=== PATIENT | male | born 1985 | race Caucasian/White ===

== ENCOUNTER 2024-06-08 15:55 | Emergency (ER) | payer SELFPAY ==
--- NOTE | 2024-06-08 16:48 | EDPHYS ---
Physician Documentation [facility] Name: Jeromy Land Age: 39 yrs Sex: Male : 1985 Arrival Date: 06/08/2024 Time: 15:55 Bed 20 Private MD: ED Physician Trever Parsons HPI: 06/08 20:07 This 39 yrs old Male presents to ER via EMS with complaints of Anxiety. rt 20:07 Patient states that he was kicked out of a hotel he was living at recently, he rt developed anxiety related to that today. Denies physical symptoms associated with. Does state that he had used methamphetamines over the past few days. Denies any acute complaints at this time, symptoms are mild in severity, no other aggravating relieving factors.. Historical: - Allergies: 16:05 No Known Allergies; kc6 - Home Meds: 16:05 None [Active]; kc6 - PMHx: 16:05 Anxiety; kc6 - PSHx: 16:05 None; kc6 - Immunization history:: Client reports having NOT received the Covid vaccine. Flu vaccine is up to date. - Infectious Disease History:: Denies. - Social history:: Smoking status: Patient reports the use of cigarette tobacco products, smokes one-half pack cigarettes per day, Patient/guardian denies using alcohol, street drugs. - Family history:: not pertinent. ROS: 20:07 Constitutional: Negative for fever, chills, and weight loss, Cardiovascular: Negative rt for chest pain, palpitations, and edema, Respiratory: Negative for shortness of breath, cough, wheezing, and pleuritic chest pain, Abdomen/GI: Negative for abdominal pain, nausea, vomiting, diarrhea, and constipation, MS/Extremity: Negative for injury and deformity, Skin: Negative for injury, rash, and discoloration, Neuro: Negative for headache, weakness, numbness, tingling, and seizure, 20:07 Psych: Positive for anxiety, Negative for suicidal ideation, Exam: 20:10 Constitutional: This is a well developed, well nourished patient who is awake, alert, rt and in no acute distress. Chest/axilla: Normal chest wall appearance and motion. Nontender with no deformity. No lesions are appreciated. Cardiovascular: Regular rate and rhythm with a normal S1 and S2. No gallops, murmurs, or rubs. Normal PMI, no JVD. No pulse deficits. Respiratory: Lungs have equal breath sounds bilaterally, clear to auscultation and percussion. No rales, rhonchi or wheezes noted. No increased work of breathing, no retractions or nasal flaring. Abdomen/GI: Soft, non-tender, with normal bowel sounds. No distension or tympany. No guarding or rebound. No evidence of tenderness throughout. Skin: Warm, dry with normal turgor. Normal color with no rashes, no lesions, and no evidence of cellulitis. MS/ Extremity: Pulses equal, no cyanosis. Neurovascular intact. Full, normal range of motion. Vital Signs: 16:04 BP 145 / 100; Pulse 77; Resp 18 S; Temp 98(O); Pulse Ox 98% on R/A; Weight 99.79 kg kc6 (R); Height 6 ft. 2 in. (R); Pain 0/10; 16:51 BP 120 / 97; kc6 16:04 Body Mass Index 28.25 (99.79 kg, 187.96 cm) 6 16:04 Pain Scale: Adult kc6 MDM: 16:20 Medical Screening Exam initiated rt 20:10 Differential Diagnosis Anxiety disorder, methamphetamine abuse. Data reviewed: vital rt signs, nurses notes. Test considered but Not performed: Other Details Patient with anxiety only, no physical symptoms, stable vital signs, believe that any diagnostic studies are indicated.. Care significantly affected by the following chronic conditions: Anxiety disorder. Counseling: I had a detailed discussion with the patient and/or guardian regarding the historical points, exam findings, and any diagnostic results supporting the discharge/admit diagnosis, the need for outpatient follow up, to return to the emergency department if symptoms worsen or persist or if there are any questions or concerns that arise at home. Administered Medications: 16:50 Drug: hydrOXYzine PO 25 mg PO once Route: PO; kc6 17:20 Follow up: Response: No adverse reaction kc6 Disposition Summary: 06/08/24 16:48 Discharge Ordered Notes: Location: Home rt Problem: new rt Symptoms: have improved rt Condition: Stable rt Diagnosis - Anxiety disorder, unspecified rt - Methamphetamine abuse rt Followup: rt - With: Private Physician - When: 2 - 3 days - Reason: Discharge Instructions: - Discharge Summary Sheet rt - Methamphetamines Use Disorder rt - Generalized Anxiety Disorder, Adult rt Forms: - Medication Reconciliation Form rt - Antibiotic Education rt - Prescription Opioid Use rt - Patient Portal Instructions rt - Leadership Thank You Letter rt Prescriptions: - Hydroxyzine HCl 25 mg Oral tablet - take 1 tablet ORAL route every 6 hours As needed; 15 tablet; Refills: 0, rt Product Selection Permitted Signatures: Heidy Flores RN RN kc6 Trever Parsons MD MD rt Corrections: (The following items were deleted from the chart) 16:07 16:05 Social history: Smoking status: Patient reports the use of cigarette tobacco kc6 products, smokes one-half pack cigarettes per day, kc6
--- NOTE | 2024-06-08 16:48 | ER ---
Nurse's Notes [facility] Name: Jeromy Land Age: 39 yrs Sex: Male : 1985 Arrival Date: 06/08/2024 Time: 15:55 Bed 20 Private MD: Diagnosis: Anxiety disorder, unspecified;Methamphetamine abuse Presentation: 06/08 16:04 Chief complaint: EMS states: they were toned out for anxiety, first episode. pt reports kc6 he was kicked out of the hotel he was staying at, lost his tooth yesterday, hasn't been able to go to [employer] or find a place to live. pt denies SI or HI. Coronavirus screen: At this time, the client does not indicate any symptoms associated with coronavirus-19. Ebola Screen: No symptoms or risks identified at this time. Initial Sepsis Screen: Does the patient meet any 2 criteria? No. Patient's initial sepsis screen is negative. Does the patient have a suspected source of infection? No. Patient's initial sepsis screen is negative. Risk Assessment: Do you want to hurt yourself or someone else? Patient reports no desire to harm self or others. Onset of symptoms was June 08, 2024. 16:04 Method Of Arrival: EMS: [facility] kc6 16:04 Acuity: LYDIA 4 kc6 Historical: - Allergies: 16:05 No Known Allergies; kc6 - Home Meds: 16:05 None [Active]; kc6 - PMHx: 16:05 Anxiety; kc6 - PSHx: 16:05 None; kc6 - Immunization history:: Client reports having NOT received the Covid vaccine. Flu vaccine is up to date. - Infectious Disease History:: Denies. - Social history:: Smoking status: Patient reports the use of cigarette tobacco products, smokes one-half pack cigarettes per day, Patient/guardian denies using alcohol, street drugs. - Family history:: not pertinent. Screenin:06 [facility] ED Fall Risk Assessment (Adult) History of falling in the last 3 months, kc6 including since admission No falls in past 3 months (0 pts) Confusion or Disorientation No (0 pts) Intoxicated or Sedated No (0 pts) Impaired Gait No (0 pts) Mobility Assist Device Used No (0 pt) Altered Elimination No (0 pt) Score/Fall Risk Level 0 - 2 = Low Risk Oriented to surroundings, Maintained a safe environment. Abuse screen: Denies threats or abuse. Denies injuries from another. Nutritional screening: No deficits noted. Tuberculosis screening: No symptoms or risk factors identified. Assessment: 16:06 General: Appears in no apparent distress. comfortable, well groomed, well developed, kc6 Behavior is cooperative, anxious, quiet. Pain: Denies pain. Neuro: Level of Consciousness is awake, alert, obeys commands, Oriented to person, place, time, situation, Appropriate for age. Cardiovascular: Capillary refill < 3 seconds. Respiratory: Airway is patent Trachea midline Respiratory effort is even, unlabored, Respiratory pattern is regular, symmetrical. GI: No signs and/or symptoms were reported involving the gastrointestinal system. : No signs and/or symptoms were reported regarding the genitourinary system. EENT: No signs and/or symptoms were reported regarding the EENT system. Derm: No signs and/or symptoms reported regarding the dermatologic system. Skin is intact, is healthy with good turgor, Skin is pink, warm \T\ dry. Musculoskeletal: No signs and/or symptoms reported regarding the musculoskeletal system. Circulation, motion, and sensation intact. Range of motion: intact in all extremities. 16:08 Reassessment: attempted to call patients jesenia Perea [phone] per his request. kc6 no answer at this time, left a VM. 17:04 Reassessment: pt on the phone with his brother Jemal at the nurses station [phone].[facility] Vital Signs: 16:04 BP 145 / 100; Pulse 77; Resp 18 S; Temp 98(O); Pulse Ox 98% on R/A; Weight 99.79 kg kc6 (R); Height 6 ft. 2 in. (R); Pain 0/10; 16:51 BP 120 / 97; kc6 16:04 Body Mass Index 28.25 (99.79 kg, 187.96 cm) 6 16:04 Pain Scale: Adult kc ED Course: 15:57 Patient arrived in ED. kc6 16:00 Trever Parsons MD is Attending Physician. rt 16:05 Triage completed. kc6 16:05 Arm band placed on. kc6 16:06 Patient has correct armband on for positive identification. Bed in low position. Call kc6 light in reach. Side rails up X2. Pulse ox on. NIBP on. Door closed. Noise minimized. Lights dimmed. Warm blanket given. Pillow given. Verbal reassurance given. 16:06 Patient maintains SpO2 saturation greater than 95% on room air. kc6 16:08 Heidy Flores RN is Primary Nurse. kc6 17:20 Diet: Patient given a regular meal tray. Patient given water. Tolerated well. kc6 17:20 No provider procedures requiring assistance completed. Patient did not have IV access kc6 during this emergency room visit. Administered Medications: 16:50 Drug: hydrOXYzine PO 25 mg PO once Route: PO; kc6 17:20 Follow up: Response: No adverse reaction kc6 Medication: 17:21 VIS not applicable for this client. kc6 Outcome: 16:48 Discharge ordered by MD. rt 17:21 Discharged to home ambulatory, kc6 17:21 Condition: good 17:21 Discharge instructions given to patient, Instructed on discharge instructions, follow up and referral plans. medication usage, Demonstrated understanding of instructions, follow-up care, medications, Prescriptions given X 1, 17:21 Patient left the ED. kc6 Signatures: Heidy Flores RN RN kc6 Trever Parsons MD MD rt Corrections: (The following items were deleted from the chart) 16:07 16:05 Social history: Smoking status: Patient reports the use of cigarette tobacco kc6 products, smokes one-half pack cigarettes per day, kc6
[2024-06-08] MEDS ORDERED: hydrOXYzine HCL 25 MG TAB ONE (16:57)
[2024-06-08 17:41] VITALS: BP 120/97; TEMP 98; O2SAT 98
== END 2024-06-08 17:21 | disposition home or self-care (01) ==
LOC: ER 15:55
DX: F15.10 Other stimulant abuse, uncomplicated (principal)
CPT/HCPCS: 99284